=== PATIENT | female | born 1990 | race American Indian/Alaskan Native ===

== ENCOUNTER 2020-12-13 12:45 | Emergency (ER) | payer SELFPAY ==
[2020-12-13] MEDS ORDERED: LACTATED RINGERS 1,000 ML IV ONE ×2 (15:31→17:53)
[2020-12-13] MEDS ORDERED: diphenhydrAMINE 50 MG/ML VIAL IV ONE ×2 (15:31→17:53)
[2020-12-13] MEDS ORDERED: METOCLOPRAMIDE 10 MG/2 ML INJ IV ONE ×2 (15:31→17:53)
[2020-12-13 15:37] LABS: Hematocrit 40.5 % (30.3-42.9); Hemoglobin 13.3 gm/dl (10.1-14.3); Mean Corpuscular HGB Conc 33 % (30-34); Mean Corpuscular Volume 76 fl (79-97); Platelet Count 209 K/mm3 (140-440); Red Cell Distribution Width 12.9 % (13.2-15.2)
[2020-12-13] MEDS ORDERED: FAMOTIDINE 20 MG/2 ML INJ IV ONE ×2 (15:44→17:53)
--- NOTE | 2020-12-13 15:48 | Emergency Department Report ---
ED General Adult HPI - General Chief complaint: Nausea/Vomiting/Diarrhea Stated complaint: 7WKS PREG DEHYDRATED Time Seen by Provider: 12/13/20 15:11 Source: patient Mode of arrival: Ambulatory Limitations: No Limitations - History of Present Illness Initial comments: 30-year-old -[place]in[place] female patient presents with complaints of nausea and vomiting x2 weeks. She reports she is 8 weeks and currently following with an [facility] MANAGER in [place]. She is G1, . She denies any hematemesis/coffee-ground emesis, lower abdominal pain, vaginal bleeding/discharge/dyspareunia, urinary frequency/dysuria, or fever/chills/sweats. She does report mild upper abdominal pain that she describes as burning. Patient is currently taking likely just and Reglan without improvement in her symptoms. - Related Data Previous Rx's Medication Instructions Recorded Last Taken Type Amoxicillin/Potassium Clav 1 each PO BID 5 Days #10 tablet 12/13/20 Unknown Rx [Augmentin 875-125 Tablet] Promethazine [Phenergan SUPPOS] 50 mg NV Q8H PRN #30 supp.rect 12/13/20 Unknown Rx Allergies Allergy/AdvReac Type Severity Reaction Status Date / Time No Known Allergies Allergy Unverified 12/13/20 15:06 ED Review of Systems ROS: Stated complaint: 7WKS PREG DEHYDRATED Other details as noted in HPI Constitutional: denies: chills, diaphoresis, fever, malaise, weakness Cardiovascular: denies: chest pain Gastrointestinal: nausea, vomiting. denies: diarrhea, constipation, hematemesis, hematochezia Genitourinary: denies: urgency, dysuria, frequency, hematuria, discharge, abnormal menses, dyspareunia Neurological: denies: headache ED Past Medical Hx - Past Medical History Previous Medical History?: No - Surgical History Past Surgical History?: No - Medications Home Medications: Home Medications Medication Instructions Recorded Confirmed Last Taken Type Amoxicillin/Potassium Clav 1 each PO BID 5 Days #10 tablet 12/13/20 Unknown Rx [Augmentin 875-125 Tablet] Promethazine [Phenergan SUPPOS] 50 mg NV Q8H PRN #30 supp.rect 12/13/20 Unknown Rx ED Physical Exam - General Limitations: No Limitations General appearance: alert, in no apparent distress - Head Head exam: Present: atraumatic, normocephalic - Eye Eye exam: Present: normal appearance. Absent: scleral icterus - Respiratory Respiratory exam: Absent: respiratory distress - Cardiovascular Cardiovascular Exam: Present: regular rate - GI/Abdominal GI/Abdominal exam: Present: soft, normal bowel sounds. Absent: distended, tenderness, rebound, rigid - Neurological Exam Neurological exam: Present: alert, oriented X3 - Psychiatric Psychiatric exam: Present: normal affect, normal mood - Skin Skin exam: Present: warm, dry, intact, normal color. Absent: rash, cyanosis, diaphoretic ED Course Vital Signs 12/13/20 15:01 Temperature 98.3 F Pulse Rate 80 Respiratory 16 Rate Blood Pressure 128/91 O2 Sat by Pulse 100 Oximetry ED Medical Decision Making - Lab Data Result diagrams: 12/13/20 15:11 12/13/20 15:11 - Medical Decision Making 30-year-old -[place] female patient presents with complaints of nausea and vomiting x2 weeks. She reports she is 8 weeks and currently following with an [facility] MANAGER in [place]. She is G1, . She denies any hematemesis/coffee-ground emesis, lower abdominal pain, vaginal bleeding/discharge/dyspareunia, urinary frequency/dysuria, or fever/chills/s weats. She does report mild upper abdominal pain that she describes as burning. Patient is currently taking likely just and Reglan without improvement in her symptoms. No significant abnormalities noted on CBC. Mild hyponatremia noted with a sodium of 132. Anion gap is 25. Mild hypokalemia noted also with a potassium of 3.4. Patient given oral potassium and 1 L normal saline and lactated Ringer's. Meds given for nausea. She is now tolerating crackers and juice orally. No vomiting observed here in ED. UA shows elevated WBCs-will treat with Augmentin given patient is . Will discharge home with rectal Phenergan given that patient is not able to orally tolerate other nausea medicine as prescribed. She is to follow-up with her [facility] [facility]NAGER in 3 days. Her vitals are normal, she is well-appearing, she is stable for discharge home. Strict return precautions were discussed in detail with patient who verbalizes understanding. Critical care attestation.: If time is entered above; I have spent that time in minutes in the direct care of this critically ill patient, excluding procedure time. ED Disposition Clinical Impression: Vomiting , UTI in Disposition: 01 HOME / SELF CARE / HOMELESS Is pt being admited?: No Condition: Stable Instructions: Hyperemesis Gravidarum, Nausea and Vomiting, Adult, and Urinary Tract Infection Additional Instructions: Follow up with OBGYN within 2-3 days Prescriptions: Amoxicillin/Potassium Clav [Augmentin 875-125 Tablet] 1 each PO BID 5 Days #10 tablet Promethazine [Phenergan SUPPOS] 50 mg NV Q8H PRN #30 supp.rect PRN Reason: Nausea Referrals: PRIMARY CARE,MD [Primary Care Provider] - 3-5 Days
[2020-12-13 15:51] LABS: Alanine Aminotransferase 46 units/L (7-56); Albumin 5.2 g/dL (3.9-5); Blood Urea Nitrogen 16 mg/dL (7-17); Hemolysis Index 11
[2020-12-13 16:34] LABS: BUN/Creatinine Ratio 27
[2020-12-13 16:39] LABS: Bacteria,Urine 1+ /HPF (Negative); Bilirubin,Urine NEG (Negative); Blood,Urine NEG (Negative); Color,Urine Amber (Yellow); Mucus,Urine 3+ /HPF
[2020-12-13] MEDS ORDERED: SODIUM CHLORIDE 0.9% 1000 ML 1,000 ML IV ONE (16:53)
[2020-12-13 21:22] VITALS: BP 112/70
== END 2020-12-13 21:21 | disposition home or self-care (01) ==
LOC: ED 12:45
DX: O21.8 Other vomiting complicating pregnancy (principal); O23.41 Unspecified infection of urinary tract in pregnancy, first trimester; Z3A.01 Less than 8 weeks gestation of pregnancy
CPT/HCPCS: 36415; 80053; 81001; 84702; 85027; 87086; 96361; 96374; 96375; 99283; J1200; J2765; J7030; J7120